=== PATIENT | male | born 1965 | race Hispanic/Latino ===

== ENCOUNTER 2021-09-23 06:42 | Day surgery (SDC) | payer BC, OTHER ==
--- NOTE | 2021-09-22 14:20 | Short Stay Summary ---
Short Stay Documentation Date of service: 09/23/21 Narrative H&P: Mr. Rose is here for cardiac cath due to a complaint of some chronic shortness of breath. No change in symptoms. He has some disparate data regarding his ejection fraction. He had an echocardiogram while at [facility], [place] in atrial fibrillation, which revealed an ejection fraction of 35% to 40% with a normally-functioning bioprosthetic aortic valve. He had a nuclear stress test in the office, which showed questionable apical r eversible ischemia. Furthermore, he had a MUGA scan in the office, which revealed ejection fraction of 65%, which was somewhat technically difficult. His primary cardiologists believe his ejection fraction is likely closer to 45% or so. Clinically, he has mild chronic combined HFrEF and HFpEF. He has been compliant on high-dose beta rosalinda and ARB. Mild chronic kidney disease. Baseline creatinine is between 1.3 and 1.4. His Lasix was recently increased to give an additional 20 mg every other day with potassium. - History Principal diagnosis: Abnomral stress test Past Medical History: other (chronic diastolic heart failure, coronary artery disease, hyperlipidemia, s/p aortic valve replacement, tobacco abuse, ventricular septal defect, carotid arterial disease) Past Surgical History: Other (Aortic valve replacement) Social history: smoking (former smoker) - Allergies and Medications Current Medications: Allergies Sulfa (Sulfonamide Antibiotics) Adverse Reaction (Intermediate, Verified 04/17/13 11:02) Itching lisinopril Adverse Reaction (Mild, Verified 04/17/13 11:02) cough Home Medications Medication Instructions Recorded Confirmed Last Taken Type Amlodipine Bes/Olmesartan Med 1 tab PO DAILY 04/17/13 04/17/13 04/16/13 23:00 History [Ethan 10-40 mg] 1 tab Atorvastatin [Lipitor] 40 mg PO QHS 04/17/13 04/17/13 04/16/13 23:30 History 40 mg Ezetimibe [Zetia] 10 mg PO DAILY 04/17/13 04/17/13 04/16/13 23:30 History 10 mg - Physical exam General appearance: no acute distress Lungs: Clear to auscultation Heart: Regular rate, Normal S1, Normal S2 Gastrointestinal: normoactive bowel sounds Extremities: no ischemia, pulses intact Neurological: Normal gait, Normal speech - Brief post op/procedure progress note Date of procedure: 09/23/21 Pre-op diagnosis: Cardiomyopathy Post-op diagnosis: same Anesthesia: local Estimated blood loss: minimal - Hospital course Hospital course: Patient presents today for cardiac cath. Cardiac cath showed no angiographic evidence of significant epicardial coronary artery disease. See cath report for full details. Patient tolerated procedure well with no complications Patient to be started on amiodarone 200 mg p.o. twice daily. Patient is to stop metoprolol with heart rate 100 mg p.o. 3 times daily and converted to metoprolol succinate 100 mg p.o. daily. Patient to follow-up in the Coumadin clinic and in our office. Plan of care discussed with patient who verbalized understanding and acknowledgment - Disposition Condition at discharge: Good Disposition: 01 HOME / SELF CARE / HOMELESS - Discharge Diagnoses (1) A-fib Status: Acute (2) Cardiomyopathy Status: Acute (3) Coronary artery disease Status: Acute (4) S/P aortic valve replacement Status: Acute Short Stay Discharge Plan Activity: advance as tolerated Diet: low fat, low cholesterol, low salt Wound: keep clean and dry, per your surgeon's advice Follow up with: LJ CLARK MD [Staff Physician] - 7 Days (Patient has a follow-up appointment with Dr. Clark on 10/06/2021 at 2:30 PM at our [place] location Patient with follow-up appointment with Coumadin clinic on 09/28/2021 at 3 PM at the [place] location ) Forms: CardCath PCI D/C Instructions Prescriptions: Amiodarone [Cordarone 200 MG TAB] 200 mg PO BID 30 Days #60 tab Metoprolol Succinate [Kapspargo Sprinkle] 100 mg PO DAILY 30 Days #30 tab
[2021-09-23] MEDS: SODIUM CHLORIDE 0.9% 1000 ML 1,000 ML IV SCH ×2 (07:30→08:53)
[2021-09-23 07:45] LABS: INR 1.01 (0.87-1.13)
[2021-09-23 07:46] LABS: Partial Thromboplastin Time 41.7 Sec. (24.2-36.6)
[2021-09-23 07:54] LABS: Calcium 9.7 mg/dL (8.4-10.2)
[2021-09-23] MEDS ORDERED: HEPARIN 10,000 UNITS/10 ML VIAL ONE (08:50)
[2021-09-23] MEDS ORDERED: VERAPAMIL 5 MG/2 ML INJ ONE (08:50)
[2021-09-23] MEDS ORDERED: LIDOCAINE (1%) 10 MG/1 ML VIAL 20 ML MDV ONE (08:51)
[2021-09-23] MEDS: HEPARIN/NS 5000 UNIT/500ML 1,000 ML IR ONE ×2 (08:53→09:10)
[2021-09-23] MEDS: NITROGLYCERIN SYRINGE 3 ML ONE ×2 (08:53→09:09)
[2021-09-23] MEDS ORDERED: ASPIRIN 81 MG TAB CHEW PO SCH (10:00)
[2021-09-23] MEDS ORDERED: fentaNYL 100 MCG/2 ML INJ ONE (10:03)
[2021-09-23] MEDS ORDERED: MIDAZOLAM 2 MG/2 ML INJ ONE (10:03)
--- NOTE | 2021-09-23 10:50 | Electrocardiograph Report ---
[facility] Test Date: 2021-09-23 Test Time: 07:46:11 Pat Name: PER WHITING Department: Room: Gender: M Vp Analysis: MAINOR : 1965 Requested By: GUALBERTO CLARK Order Number: [id number] Reading MD: Gualberto Clark Measurements Intervals [place] Rate: 86 P: IN: QRS: 51 QRSD: 113 T: 206 QT: 441 QTc: 529 Interpretive Statements Atrial fibrillation Ventricular bigeminy Nonspecific T abnormalities, lateral leads Prolonged QT interval No previous ECG available for comparison Electronically Signed On 09-23-2021 10:49:34 EDT by Gualberto Clark
--- NOTE | 2021-09-23 11:11 | Cardiac Catherization Report ---
DATE OF PROCEDURE: 09/23/2021 CARDIAC CATHETERIZATION REFERRING PHYSICIAN: Gualberto Gaytan MD INDICATIONS FOR PROCEDURE: The patient is a pleasant 56-year-old gentleman, who has had history of 2 aortic valve replacements, VSD repair, now has a new cardiomyopathy, atrial fibrillation and chronic kidney disease. Seeing Nephrology. Kidney disease is at baseline. Risk of contrast-induced nephropathy discussed. He was started on fluids yesterday here for elective cardiac catheterization. Risks, benefits, potential alternatives explained at length. He is also on a Lovenox bridge for Coumadin. Risks, benefits and alternatives discussed prior to obtaining informed consent. PROCEDURE IN DETAIL: The patient was brought to the can labeler in postabsorptive state, prepped and draped in a sterile fashion. Bacilio's test in right hand was normal. Then, 2 mL of 2% lidocaine was used to anesthetize the right wrist. A standard 6-Nigerian hydrophilic sheath was used to cannulate the right radial artery via modified Seldinger technique. All exchanges performed to exchange a J-tip guidewire. A JL3.5 catheter was used to engage the left main. No dampening or ventricularization. Cineangiography performed in all projections. A JR4 catheter was used to cross the aortic valve under fluoroscopic guidance. Left ventriculography performed in the 30-degree PILAR projections via hand injections, catheter flushed. Manual pullback performed with continuous pressure monitoring. Catheter was used to engage the right coronary. No dampening or ventricularization. Cineangiography performed in all projections. Next, catheter was removed from the body of wire, sheath removed. Manual pressure used to achieve hemostasis. I directly supervised the administration of fentanyl and Versed for moderate sedation from 10:00 a.m. to 10:25 a.m. No immediate complications. DATA: The patient remained in atrial fibrillation with mostly controlled ventricular response throughout. The bioprosthetic aortic valve is well identified, easily crossed, normal left ventricular systolic performance. Its tilting disk motion is normal on cineangiography. Left ventriculography reveals moderate global left ventricular hypokinesis, estimated ejection fraction 40-45%. No evidence of aortic stenosis. CORONARY ANATOMY: Right coronary is a large vessel, courses to AV groove. No significant disease. Left main without significant disease, bifurcates into left anterior descending, left circumflex. Left circumflex is a moderate sized vessel, courses to AV groove. No significant disease. Left main without significant disease. LAD and diagonals with minimal luminal irregularities, but no significant disease. CONCLUSIONS: 1. No angiographic evidence of significant epicardial coronary artery disease in this right dominant system. 2. Normally functioning bioprosthetic aortic valve without gradient. 3. Tast-ra-yathapth global left ventricular hypokinesis, estimated ejection fraction of 45%. 4. Atrial fibrillation with controlled ventricular response. 5. Mildly elevated left ventricular end diastolic pressure. RECOMMENDATIONS: At this point, the patient is clinically stable. We will reinitiate Lovenox bridging and Coumadin therapy. At this point, he has likely a moderate cardiomyopathy, likely due to atrial fibrillation. This is the index interval change in his symptoms and overall status. He is on systemic anticoagulation, although he has COPD and so forth, I am going to start him on a short run of amiodarone. He has been on anticoagulation for at least 6 weeks. We will start him on amiodarone p.o. My intention is to do this for a short term and electively do a cardioversion. We will review his medications and make sure he is on the Lovenox bridge prior to discharge. I limited dye use as much as possible and we used approximately 25 mL of Isovue. Continue IV fluids prior to discharge. Results of the procedure explained at length to the patient. All questions were addressed. TID: [id number] RECEIPT: [id number] PANCHO/MAX
[2021-09-23] MEDS ORDERED: traMADol 50 MG TAB PO PRN (11:30)
[2021-09-23] MEDS ORDERED: HYDROcodone/ACETAMINOPHEN 5-325 MG TAB PO PRN (11:30)
[2021-09-23 14:21] VITALS: BP 135/101
== END 2021-09-23 14:57 | disposition home or self-care (01) ==
LOC: CATHLABREC 06:42
PROVIDERS: ATTEND Internal Medicine
DX: I42.9 Cardiomyopathy, unspecified (principal); R06.09 Other forms of dyspnea; I50.20 Unspecified systolic (congestive) heart failure; Z95.3 Presence of xenogenic heart valve; I48.91 Unspecified atrial fibrillation; N18.9 Chronic kidney disease, unspecified; I25.10 Atherosclerotic heart disease of native coronary artery without angina pectoris; Z95.2 Presence of prosthetic heart valve; E78.00 Pure hypercholesterolemia, unspecified; J44.9 Chronic obstructive pulmonary disease, unspecified; I12.9 Hypertensive chronic kidney disease with stage 1 through stage 4 chronic kidney disease, or unspecified chronic kidney disease; K21.9 Gastro-esophageal reflux disease without esophagitis; Z98.890 Other specified postprocedural states; M19.90 Unspecified osteoarthritis, unspecified site; Z82.49 Family history of ischemic heart disease and other diseases of the circulatory system; Z83.3 Family history of diabetes mellitus
CPT/HCPCS: 36415; 80048; 85610; 85730; 93005; 93458; 99156; 99157; C1894; J1644; J1815; J2250; J3010; J7030; 96360; 96361; Q9967

== ENCOUNTER 2021-11-01 06:19 | Day surgery (SDC) | payer OTHER ==
[2021-11-01] MEDS ORDERED: SODIUM CHLORIDE 0.9% 1000 ML 1,000 ML IV SCH (07:30)
--- NOTE | 2021-11-01 07:47 | Anesthesia Day of Surgery ---
Anesthesia Day of Surgery - Day of Surgery Patient Examined: Yes Patient H&P Reviewed: Yes Patient is NPO: Yes
--- NOTE | 2021-11-01 07:53 | Anesthesia Consultation ---
Anesthesia Consult and Med Hx Date of service: 11/01/21 - Airway Anesthetic Teeth Evaluation: Poor (Several LOOSE teeth) ROM Head & Neck: Adequate Mental/Hyoid Distance: Adequate Mallampati Class: Class III Intubation Access Assessment: Possibly Difficult - Pre-Operative Health Status ASA Pre-Surgery Classification: ASA3 Proposed Anesthetic Plan: MAC (GA if needed) - Pulmonary Hx Smoking: Yes Hx Respiratory Symptoms: No COPD: Yes Hx Sleep Apnea: Yes - Cardiovascular System Hx Hypertension: Yes (CHF & Cardiomyopathy) Hx Coronary Artery Disease: Yes Hx Cardia Arrhythmia: Yes (AFib) Hx Valvular Heart Disease: Yes (AVR surgery 2013) Hx Peripheral Vascular Disease: Yes (Carotid) - Central Nervous System Hx Psychiatric Problems: No - Other Systems Hx Cancer: No - Additional Comments Anesthesia Medical History Comments: Had cath [id number]
[2021-11-01 08:07] LABS: Basophils # (Auto) 0.1 K/mm3 (0.0-0.1); Basophils % (Auto) 1.2 % (0.0-1.8); Eosinophils # (Auto) 0.2 K/mm3 (0.0-0.4); Eosinophils % (Auto) 3.1 % (0.0-4.3); Hematocrit 45.1 % (35.5-45.6); Hemoglobin 15.3 gm/dl (11.8-15.2); Lymphocytes # (Auto) 2.2 K/mm3 (1.2-5.4); Lymphocytes % (Auto) 32.9 % (13.4-35.0); Mean Corpuscular HGB Conc 34 % (32-34); Mean Corpuscular Volume 95 fl (84-94); Monocytes # (Auto) 0.9 K/mm3 (0.0-0.8); Monocytes % (Auto) 12.9 % (0.0-7.3); Platelet Count 195 K/mm3 (140-440); Red Blood Count 4.73 M/mm3 (3.65-5.03); Red Cell Distribution Width 15.6 % (13.2-15.2)
[2021-11-01 08:13] LABS: INR 2.72 (0.87-1.13); Partial Thromboplastin Time 46.8 Sec. (24.2-36.6)
[2021-11-01] MEDS ORDERED: propofoL 200 MG/20 ML VIAL IV ONE (08:34)
[2021-11-01 11:06] VITALS: BP 155/92
--- NOTE | 2021-11-01 15:38 | Post Anesthesia Evaluation ---
- Post Anesthesia Evaluation Patient Participated: Yes Airway Patent: Yes Stable Respiratory Function: Yes Nausea/Vomiting: No Temp > 96.8F: Yes Pain Manageable: Yes Adequeate Hydration: Yes Anesthesia Complications: No Block Receding Appropriately: Not Applicable Patient on Ventilator: No
--- NOTE | 2021-11-02 00:40 | Treadmill Report ---
DATE OF SERVICE: 11/01/2021 REFERRING PHYSICIAN: Gualberto Gaytan MD. INDICATION FOR PROCEDURE: The patient is a very pleasant 56-year-old gentleman, history of aortic valve replacement x 2, who has new atrial fibrillation from some 5 months ago, having more shortness of breath, failed medical management. He is here for elective electrical cardioversion. He has been on uninterrupted anticoagulation for greater than 3 months. INR is 2.5 today. Risks, benefits and alternatives discussed with the patient at length. PROCEDURE IN DETAIL: The patient was brought to the cardioversion suite in a postabsorptive state. Timeout is performed. Anesthesia bedside throughout. Once adequate anesthesia is achieved, we used 200 biphasic joules x 1 to cardiovert the patient into sinus rhythm. No complications. No arrhythmias. The patient tolerated the procedure well without complication. CONCLUSIONS: 1. Successful elective cardioversion of atrial fibrillation with resumption of sinus rhythm. No immediate complications. 2. Anesthesia recovered the patient. The patient is to follow up with me in the office in 2 weeks. Stable cardiac status. Continue anticoagulation. TID: [id number] RECEIPT: [id number] ROSANNA/GRICEL
--- NOTE | 2021-11-02 10:02 | Electrocardiograph Report ---
[facility] Test Date: 2021-11-01 Test Time: 07:29:52 Pat Name: PER WHITING Department: Room: Gender: M Applied Researcher: MAINOR : 1965 Requested By: GUALBERTO CLARK Order Number: [id number] Reading MD: Gualberto Clark Measurements Intervals [place] Rate: 77 P: [place]: QRS: 52 QRSD: 118 T: 12 QT: QTc: 0 Interpretive Statements Atrial fibrillation Nonspecific intraventricular conduction delay Compared to ECG 09/23/2021 07:46:11 Intraventricular conduction delay now present Ventricular premature complex(es) no longer present T-wave abnormality no longer present Prolonged QT interval no longer present Electronically Signed On 11-02-2021 10:02:26 EDT by Gualberto Clark
--- NOTE | 2021-11-02 10:03 | Electrocardiograph Report ---
[facility] Test Date: 2021-11-01 Test Time: 09:07:23 Pat Name: PER WHITING Department: Room: Gender: M Digital Asset Manager: MAINOR : 1965 Requested By: GUALBERTO CLARK Order Number: [id number] Reading MD: Gualberto Clark Measurements Intervals [place] Rate: 46 P: 51 ND: 114 QRS: 48 QRSD: 118 T: 100 QT: 685 QTc: 602 Interpretive Statements Sinus bradycardia Nonspecific intraventricular conduction delay Nonspecific T abnormalities, lateral leads Prolonged QT interval Compared to ECG 11/01/2021 07:29:52 T-wave abnormality now present Prolonged QT interval now present Atrial fibrillation no longer present Electronically Signed On 11-02-2021 10:03:08 EDT by Gualberto Clark
== END 2021-11-01 11:40 | disposition home or self-care (01) ==
LOC: CATHLABREC 06:19
PROVIDERS: ATTEND Internal Medicine
DX: I48.91 Unspecified atrial fibrillation (principal); I42.9 Cardiomyopathy, unspecified; I25.10 Atherosclerotic heart disease of native coronary artery without angina pectoris; J44.9 Chronic obstructive pulmonary disease, unspecified; I10 Essential (primary) hypertension; K21.9 Gastro-esophageal reflux disease without esophagitis; M19.90 Unspecified osteoarthritis, unspecified site; F17.210 Nicotine dependence, cigarettes, uncomplicated; Z95.2 Presence of prosthetic heart valve; Z88.2 Allergy status to sulfonamides; Z88.8 Allergy status to other drugs, medicaments and biological substances; Z79.01 Long term (current) use of anticoagulants; Z79.899 Other long term (current) drug therapy; Z79.82 Long term (current) use of aspirin; Z98.890 Other specified postprocedural states; Z83.3 Family history of diabetes mellitus; Z82.61 Family history of arthritis; Z82.49 Family history of ischemic heart disease and other diseases of the circulatory system
CPT/HCPCS: 36415; 80048; 85025; 85610; 85730; 92960; 93005; J2704; J7030